=== PATIENT | female | born 1985 | race Caucasian/White ===

== ENCOUNTER 2018-12-03 15:16 | Emergency (ER) | payer OTHER ==
[~2018-12-03] VITALS: Ht 149.9 cm; Wt 90.7 kg
[2018-12-03 15:30] VITALS: BP 132/84
--- NOTE | 2018-12-03 15:30 | NUR ---
PT AMBULATED TO BED 10, EKG PERFORMED IN TRIAGE
--- NOTE | 2018-12-03 15:51 | NUR ---
PT C/O STERNAL CP RADIATING TO L BACK X 1 WEEK, DENIES SOB, NVD, FEVERS, CHILLS. 100% ON RA, HR 73. EKG PERFORMED IN TRIAGE. VSS; PATIENT POSITIONED FOR COMFORT; HOB ELEVATED; BEDRAILS UP X2; BED DOWN. ER MD MADE AWARE OF PT STATUS.
[2018-12-03] MEDS ORDERED: KETOROLAC 30 MG/ML VIAL IVP ONE (16:20)
[2018-12-03 16:22] LABS: BARBITURATE, URINE NEG. ng/ml (NEG <=200); BENZODIAZEPINE, URINE NEG. ng/mL (NEG <=200); CANNABINOID, URINE NEG. ng/mL (NEG <=50); COCAINE, URINE NEG. ng/mL (NEG <=300); OPIATE, URINE NEG. ng/mL (NEG <=2000); PHENCYCLIDINE SCREEN,URINE NEG. ng/mL (NEG <=25)
[2018-12-03 16:43] LABS: BASOPHILS % (AUTO) 0.4 % (0.0-2.0); EOSINOPHILS # (AUTO) 0.2 K/uL (0-0.4); EOSINOPHILS % (AUTO) 2.1 % (0.0-4.0); HEMATOCRIT 43.2 % (36-48); HEMOGLOBIN 14.1 g/dL (12.0-16.0); LYMPHOCYTES # (AUTO) 2.8 K/uL (2.5-16.5); LYMPHOCYTES % (AUTO) 28.9 % (20.5-51.1); MEAN CORPUSCULAR HEMOGLOBIN 28 pg (27-31); MEAN CORPUSCULAR HGB CONC 33 g/dL (33-37); MEAN CORPUSCULAR VOLUME 85.5 fL (80-94); MONOCYTES # (AUTO) 0.7 K/uL (0.8-1.0); MONOCYTES % (AUTO) 7.6 % (1.7-9.3); NEUTROPHILS # (AUTO) 5.8 K/uL (1.8-7.7); PLATELET COUNT (AUTO) 232 K/uL (140-450); RED BLOOD CELL COUNT(AUTO) 5.05 MIL/uL (4.20-5.40); RED CELL DISTRIBUTION WIDTH 13.4 % (11.6-13.7); WHITE BLOOD COUNT (AUTO) 9.6 K/uL (4.8-10.8)
[2018-12-03 16:50] LABS: APPEARANCE,URINE CLEAR (CLEAR); BILIRUBIN,URINE NEGATIVE (NEGATIVE); BLOOD, URINE NEGATIVE (NEGATIVE); COLOR,URINE YELLOW (YELLOW); LEUKOCYTE ESTERASE ,URINE 2+ (NEGATIVE); NITRITE, URINE NEGATIVE (NEGATIVE); PH,URINE 6.5 (5.0-9.0); UGLUCOSE NEGATIVE (NEGATIVE)
[2018-12-03 16:53] LABS: RBC,URINE NONE SEEN /HPF (0-5)
[2018-12-03 16:54] LABS: WBC,URINE 16-25 (MOD) /HPF (0-5)
[2018-12-03 17:05] LABS: PROTHROMBIN TIME 9.9 secs (10.8-13.4)
[2018-12-03 19:01] VITALS: BP 132/84
[2018-12-03 19:19] LABS: ANION GAP 8.8 (8-16); POTASSIUM 3.8 mmol/L (3.5-5.1)
[2018-12-03 19:20] LABS: ALBUMIN 3.7 g/dL (3.4-5.0); CREATININE 0.7 mg/dL (0.6-1.3); TOTAL BILIRUBIN 0.2 mg/dL (0.0-1.0)
== END 2018-12-03 19:01 | disposition home or self-care (01) ==
LOC: MED 15:16
DX: M94.0 Chondrocostal junction syndrome [Tietze] (principal)
CPT/HCPCS: 36415; 71045; 80053; 80305; 81001; 81025; 83735; 84484; 85025; 85379; 85610; 85730; 87086; 93005; 96372; 99284; J1885; Q0092